=== PATIENT | male | born 1965 | race Two or more races ===

== ENCOUNTER 2017-03-26 07:10 | Day surgery (SDC) | payer OTHER ==
[~2017-03-26] VITALS: Ht 172.7 cm; Wt 68.9 kg
[2017-03-26] VITALS (11 sets, daily range): BP systolic 116–128; BP diastolic 71–89
[2017-03-26] MEDS ORDERED: LR 1000ml ONE (07:11)
[2017-03-26] MEDS ORDERED: Glycopyrrolate 0.2mg/ml 1ml Vial ONE (07:11)
[2017-03-26] MEDS ORDERED: Ketorolac 30mg Inj ONE (07:11)
[2017-03-26] MEDS ORDERED: Neostigmine 1mg/ml 10ml Inj ONE (07:11)
[2017-03-26] MEDS ORDERED: fentaNYL 100 mcg/2 mL IV ONE (07:11)
[2017-03-26] MEDS ORDERED: Zemuron 50mg/5ml Inj IV ONE (07:11)
[2017-03-26] MEDS ORDERED: NS Irrig 1000ml ONE (07:11)
[2017-03-26] MEDS ORDERED: Midazolam 2mg/2ml Inj ONE (07:11)
[2017-03-26] MEDS ORDERED: Propofol 200mg/20ml IV ONE ×2 (07:11→10:18)
[2017-03-26] MEDS ORDERED: Sterile Water Irrig 1000ml IRRIG ONE (07:11)
[2017-03-26] MEDS ORDERED: ceFAZolin 1 GM premix IV ONE (08:00)
[2017-03-26] MEDS ORDERED: celeBREX 200mg Cap **SURGERY PATIENTS ONLY ORAL ONE (08:00)
[2017-03-26] MEDS ORDERED: oxyCONTIN 20mg tab ORAL ONE (08:00)
[2017-03-26] MEDS ORDERED: EPINEPHrine 1mg/1ml Amp ONE (08:45)
[2017-03-26] MEDS ORDERED: Ropivacaine 5mg/ml Vial 30ml INJ ONE (08:46)
[2017-03-26] MEDS ORDERED: Lidocaine 1% 10mg/ml/Epi 0.005mg/ml 30ml vial INJ ONE (08:46)
[2017-03-26] MEDS ORDERED: Bupivacaine 0.25% Inj 30ml INJ ONE (09:06)
[2017-03-26] MEDS ORDERED: HYDROmorphone 1mg/ml Carpuject SUBQ PRN (09:15)
[2017-03-26] MEDS ORDERED: Norco 5mg/325mg tab ORAL PRN (09:15)
[2017-03-26] MEDS ORDERED: D5 1/2NS 1,000 ML IV SCH (09:15)
[2017-03-26] MEDS ORDERED: Tylenol #3 tab (300mg/30mg) ORAL PRN (09:15)
--- NOTE | 2017-03-26 09:15 | Pre-Procedure Note/Attestation ---
Pre-Procedure Note/Attestation Complete Prior to Procedure Planned Procedure: right Procedure Narrative: shoulder diagnostic arthroscopy, sad Indications for Procedure Pre-Operative Diagnosis: right shoulder impingement Attestation I attest that I discussed the nature of the procedure; its benefits; risks and complications; and alternatives (and the risks and benefits of such alternatives ), prior to the procedure, with the patient (or the patient's legal chemical sales representative). I attest that, if there was a reasonable possibility of needing a blood transfusion, the patient (or the patient's legal chemical sales representative) was given the [facility] of Health Services standardized written summary, pursuant to the [place] Blood Safety Act ([place] Health and Safety Code # 1645, as amended). I attest that I re-evaluated the patient just prior to the surgery and that there has been no change in the patient's H&P, except as documented below: LYNDON FERNANDEZ Mar 26, 2017 09:15
--- NOTE | 2017-03-26 09:16 | Operative Note - PDOC ---
Operative Note Operative Note Pre-op Diagnosis: right shoulder impingement Procedure: right shoulder arthroscopy, sad, labral repair Post-op Diagnosis: same as pre-op plus Operative Findings: consistent w/pre-op dx studies Anesthesia: regional Specimen: none Complications: none Condition: stable Estimated Blood Loss: none Implant(s) used?: Yes LYNDON FERNANDEZ Mar 26, 2017 09:16
[2017-03-26] MEDS ORDERED: OMEPRAZOLE40 M1 ORAL (09:21)
[2017-03-26] MEDS ORDERED: NS Irrig 4000ml IRRIG ONE (09:28)
[2017-03-26] MEDS ORDERED: LR 1000ml 1,000 ML IVLG SCH (11:49)
--- NOTE | 2017-03-26 11:49 | Anethesia Preoperative Eval ---
Anesthesia Pre-op PMH/ROS General Date of Evaluation: Mar 26, 2017 Time of Evaluation: 09:50 Anesthesiologist: Umberto ASA Score: ASA 2 Mallampati Score Class I : Soft palate, uvula, fauces, pillars visible Class II: Soft palate, uvula, fauces visible Class III: Soft palate, base of uvula visible Class IV: Only hard plate visible Mallampati Classification: Class II Surgeon: Asad Diagnosis: R shoulder pain Surgical Procedure: R shoulder scope Anesthesia History: none Family History: no anesthesia problems Allergies: Coded Allergies: No Known Allergies (Unverified , 03/25/17) Medications: see eMAR Past Medical History Cardiovascular: Reports: valve dz - s/p mityral valve replacement, Denies: HTN, CAD, [place], arrhythmia, other Pulmonary: Denies: asthma, COPD, DEMETRIO, other Gastrointestinal/Genitourinary: Reports: GERD, Denies: CRI, ESRD, other Neurologic/Psychiatric: Denies: dementia, CVA, depression/anxiety, TIA, other Endocrine: Denies: DM, hypothyroidism, steroids, other HEENT: Denies: cataract (L), cataract (R), glaucoma, [place] (L), [place] (R), other Hematology/Immune: Denies: anemia, DVT, bleeding disorder, other Musculoskeletal/Integumentary: Denies: OA, RA, DJD, DDD, edema, other PMH Narrative: as above PSxH Narrative: Valve replacement Anesthesia Pre-op Phys. Exam Physician Exam Last Vital Signs Date Time Temp Pulse Resp B/P (MAP) Pulse Ox O2 Delivery O2 Flow Rate FiO2 03/26/17 08:33 97.8 72 18 116/84 97 Room Air Constitutional: NAD Neurologic: CN 2-12 intact Cardiovascular: RRR, no M/R/G Respiratory: CTA Gastrointestinal: S/NT/ND Airway Exam Mallampati Score: Class II Neck: flexible ROM: full Teeth: intact Dentures: no upper, no lower Anesthesia Pre-op A/P Labs see chart Studies Pre-op Studies: EKG - NSR Risk Assessment & Plan Assessment: ASA 2 Plan: GA with ETT R brachial plexus block Status Change Before Surgery: No Pre-Antibiotics Drug: Ancef 1 gr. Given Within 1 Hr of Incision: Yes Time Given: 11:22 PENNIE MARSHALL M.D. Mar 26, 2017 11:49
[2017-03-26] MEDS ORDERED: Hydromorphone 0.5mg/0.5ml inj IVP PRN (12:00)
[2017-03-26] MEDS ORDERED: DiphenhydrAMINE 50mg/ml Inj IVP PRN (12:00)
[2017-03-26] MEDS ORDERED: Meperidine 50mg/ml Inj(FOR RIGORS ONLY) IV PRN (12:00)
[2017-03-26] MEDS ORDERED: Ketorolac 30mg Inj IV PRN (12:00)
--- NOTE | 2017-03-26 14:17 | Immediate Post-Op Evaluation ---
Immediate Post-Op Evalulation Immediate Post-Op Evalulation Procedure: R shoulder scope subacromion decompression labrum repair Date of Evaluation: Mar 26, 2017 Time of Evaluation: 12:44 IV Fluids: 1200 Blood Products: none Estimated Blood Loss: min Urinary Output: none Blood Pressure Systolic: 111 Blood Pressure Diastolic: 72 Pulse Rate: 74 Respiratory Rate: 20 O2 Sat by Pulse Oximetry: 99 Temperature (Fahrenheit): 97.6 Pain Score (1-10): 2 Nausea: No Vomiting: No Complications none Patient Status: reacts, patent, extubated, none Hydration Status: adequate PENNIE MARSHALL M.D. Mar 26, 2017 14:17
--- NOTE | 2017-03-26 14:18 | 48 Hour Post Anesthesia Eval ---
Post Anesthesia Evaluation Procedure: R shoulder scope subacromion decompression labrum repair Date of Evaluation: Mar 26, 2017 Time of Evaluation: 14:17 Blood Pressure Systolic: 128 0: 76 Pulse Rate: 68 Respiratory Rate: 18 Temperature (Fahrenheit): 97.6 O2 Sat by Pulse Oximetry: 98 Airway: patent Nausea: No Vomiting: No Pain Intensity: 1 Hydration Status: adequate Cardiopulmonary Status: stable Mental Status/LOC: patient returned to baseline Follow-up Care/Observations: n/a Post-Anesthesia Complications: none Follow-up care needed: ready to discharge PENNIE MARSHALL M.D. Mar 26, 2017 14:18
--- NOTE | 2017-03-26 19:31 | Operative Note - Dictated ---
DATE OF OPERATION: 03/26/2017 PREOPERATIVE DIAGNOSES: 1. Right shoulder internal derangement syndrome, possible rotator cuff tendinosis. 2. Right shoulder traumatic impingement syndrome. POSTOPERATIVE DIAGNOSES: 1. Right shoulder anterior and inferior labral tear. 2. Right shoulder traumatic impingement syndrome/bursitis. PROCEDURES: 1. Right shoulder diagnostic arthroscopy. 2. Extensive debridement to the right shoulder anterior labral repair. 3. Subacromial decompression and bursectomy. SURGEON: Wilbert Kamara M.D. ANESTHESIA: Interscalene with general. INDICATION FOR PROCEDURE: The patient is a pleasant gentleman who has had progressive right shoulder pain. He had MRI, which showed possible tear of rotator cuff and was felt he had some degree of impingement syndrome. He elected to undergo right shoulder arthroscopy with subacromial decompression and bursectomy. Risks, limitations, expectations, and complications of the procedure were discussed in detail continued pain, need for future surgery, risk of anesthesia, complications DVT, PE, and mortality risks. All questions addressed. DESCRIPTION OF PROCEDURE: After informed consent was obtained, the patient was brought into the operating room and placed supine under monitored anesthesia control. The patient was then carefully placed in beach chair position. Right shoulder was prepped and draped in a sterile manner. Time-out was performed. Inferolateral stab incision was then made. Trocar was introduced into the right humeral joint. There was no significant chondral damage in the medial or superior glenoid. Humeral head appeared to be intact. There was a tear along the anterior and inferior labrum with elements of chondral damage. The superior labrum appeared to be intact along with biceps tendon. The articular side rotator cuff was intact. At this point, I felt that his pain may be coming from some instability in his shoulder and therefore the anterior labrum was reapproximated to the anterior surface of the glenoid using anchor. Once this was nice and secured, camera was repositioned in the subacromial space. There is significant hypertrophic bursal tissue. The undersurface of the acromion identified using the ArthroCare. Acromioplasty was started from lateral to medial, completed from posterior to anterior. Once that was done, the bursectomy was completed in the posterior aspect of the acromion. At this point, the bursal side of the rotator cuff was evaluated and noted to be intact. At this point, the instruments removed. Portal sites were closed using 3-0 Monocryl suture. Steri-Strips and a sterile dressing were applied. The patient awoken and taken to the recovery with stable signs. ESTIMATED BLOOD LOSS: None. COMPLICATION: None. SPECIMENS: None. IMPLANT: Include one [employer] JuggerKnot anchor. Wilbert Kamara M.D. DR: Aurelio JOB#: [id number] CC: KALIA
== END 2017-03-26 14:10 | disposition home or self-care (01) ==
LOC: SDS 07:10
DX: M75.41 Impingement syndrome of right shoulder (principal); S43.401A Unspecified sprain of right shoulder joint, initial encounter; X58.XXXA Exposure to other specified factors, initial encounter; Y93.9 Activity, unspecified; Y92.9 Unspecified place or not applicable; Z95.2 Presence of prosthetic heart valve
CPT/HCPCS: 29823; 29826; J0171; J1885; J2250; J2704; J2710; J2795; J3010; J3490; J7120; 94003; 94150; C1713

== ENCOUNTER 2017-07-09 07:04 | Day surgery (SDC) | payer OTHER ==
[2017-07-09] VITALS (13 sets, daily range): BP systolic 110–124; BP diastolic 71–85
[~2017-07-09] VITALS: Ht 172.7 cm; Wt 70.3 kg
[~2017-07-09 07:04] MED LIST: Atropine Inj 1mg/10ml Syr IV PRN; Dexamethasone 4mg/ml vial ONE; DiphenhydrAMINE 50mg/ml Inj IVP PRN; EPINEPHrine 1mg/1ml Amp ONE; HYDROcodone/Acetamin 7.5/325 tab ORAL PRN; Hydromorphone 0.5mg/0.5ml inj IVP PRN; Ketorolac 30mg Inj IV PRN; LORazepam Inj 2mg/ml 1ml IV PRN; LR 1000ml 1,000 ML IVLG SCH; Labetalol 5mg/ml 20ml vial IV PRN; Midazolam 2mg/2ml Inj IVP PRN; Norco 5mg/325mg tab ORAL PRN; OMEPRAZOLE40 M1 ORAL; Propofol 200mg/20ml IV ONE; Ropivacaine 5mg/ml Vial 30ml INJ ONE; fentaNYL 100 mcg/2 mL IV ONE; fentaNYL 100 mcg/2 mL IV PRN; oxyCODONE HCL/Acetaminophen 5/325mg ORAL PRN
[2017-07-09] MEDS ORDERED: Kenalog-40 1ml Vial ONE ×2 (07:30→08:46)
[2017-07-09] MEDS ORDERED: Ropivacaine 2mg/ml Amp 20ml INJ ONE (07:30)
[2017-07-09] MEDS ORDERED: Lidocaine 1% 10mg/ml/Epi 0.005mg/ml 30ml vial INJ ONE (07:31)
[2017-07-09] MEDS ORDERED: NORCO 10-325 T1 EACH ORAL (07:33)
--- NOTE | 2017-07-09 07:44 | Pre-Procedure Note/Attestation ---
Pre-Procedure Note/Attestation Complete Prior to Procedure Planned Procedure: right Procedure Narrative: shoulder manipulation under anesthesia and intraarticular cortisone injection Indications for Procedure Pre-Operative Diagnosis: right shoulder adhesive capsilitis Attestation I attest that I discussed the nature of the procedure; its benefits; risks and complications; and alternatives (and the risks and benefits of such alternatives ), prior to the procedure, with the patient (or the patient's legal personal service representative). I attest that, if there was a reasonable possibility of needing a blood transfusion, the patient (or the patient's legal personal service representative) was given the [facility] of Health Services standardized written summary, pursuant to the Sharif [place] Blood Safety Act ([place] Health and Safety Code # 1645, as amended). I attest that I re-evaluated the patient just prior to the surgery and that there has been no change in the patient's H&P, except as documented below: LYNDON FERNANDEZ Jul 09, 2017 07:44
--- NOTE | 2017-07-09 07:45 | Operative Note - PDOC ---
Operative Note Operative Note Pre-op Diagnosis: right shoulder adhesive capsilitis Procedure: see op report Post-op Diagnosis: same as pre-op plus Operative Findings: consistent w/pre-op dx studies Anesthesia: MAC Specimen: none Complications: none Condition: stable Estimated Blood Loss: none Implant(s) used?: LYNDON Raza Jul 09, 2017 07:45
--- NOTE | 2017-07-09 08:17 | Anethesia Preoperative Eval ---
Anesthesia Pre-op PMH/ROS General Date of Evaluation: Jul 09, 2017 Time of Evaluation: 08:13 Anesthesiologist: Umberto ASA Score: ASA 2 Mallampati Score Class I : Soft palate, uvula, fauces, pillars visible Class II: Soft palate, uvula, fauces visible Class III: Soft palate, base of uvula visible Class IV: Only hard plate visible Mallampati Classification: Class II Surgeon: Asad Diagnosis: R shoulder pain Surgical Procedure: R shoulder manipulation Anesthesia History: none Family History: no anesthesia problems Allergies: Coded Allergies: No Known Allergies (Unverified , 03/25/17) Medications: see eMAR Past Medical History Cardiovascular: Reports: HTN - mild; Denies: CAD, [place], valve dz, arrhythmia, other Pulmonary: Denies: asthma, COPD, DEMETRIO, other Gastrointestinal/Genitourinary: Reports: GERD; Denies: CRI, ESRD, other Neurologic/Psychiatric: Reports: other - chronic pain; Denies: dementia, CVA, depression/anxiety, TIA Endocrine: Denies: DM, hypothyroidism, steroids, other HEENT: Denies: cataract (L), cataract (R), glaucoma, [place] (L), [place] (R), other Hematology/Immune: Denies: anemia, DVT, bleeding disorder, other Musculoskeletal/Integumentary: Denies: OA, RA, DJD, DDD, edema, other PMH Narrative: as above PSxH Narrative: See H&P Anesthesia Pre-op Phys. Exam Physician Exam Last Vital Signs Date Time Temp Pulse Resp B/P (MAP) Pulse Ox O2 Delivery O2 Flow Rate FiO2 07/09/17 07:55 97.7 65 20 115/81 96 Room Air 97.7 Constitutional: NAD Neurologic: CN 2-12 intact Cardiovascular: RRR Respiratory: CTA Gastrointestinal: S/NT/ND Airway Exam Mallampati Score: Class II MO: full Neck: flexible ROM: full Teeth: intact Dentures: no upper, no lower Anesthesia Pre-op A/P Labs see chart Risk Assessment & Plan Assessment: ASA 2 Plan: MAC with brachial plexus block Status Change Before Surgery: No Pre-Antibiotics Drug: Ancef !gr. Given Within 1 Hr of Incision: Yes Time Given: 09:10 PENNIE MARSHALL M.D. Jul 09, 2017 08:17
[2017-07-09] MEDS ORDERED: Morphine Sulfate PF 10 ML ONE (08:46)
[2017-07-09] MEDS ORDERED: Ketorolac 30mg Inj ONE (08:46)
[2017-07-09] MEDS ORDERED: Bupivacaine 0.25% Inj 30ml INJ ONE (08:47)
[2017-07-09] MEDS ORDERED: Midazolam 2mg/2ml Inj ONE (09:00)
[2017-07-09] MEDS ORDERED: LR 1000ml ONE (09:00)
[2017-07-09] MEDS ORDERED: fentaNYL 100 mcg/2 mL IV ONE (09:00)
[2017-07-09] MEDS ORDERED: Duramorph PF 10mg/10ml amp EPIDUR ONE (09:10)
--- NOTE | 2017-07-09 11:20 | Immediate Post-Op Evaluation ---
Immediate Post-Op Evalulation Immediate Post-Op Evalulation Procedure: R shoulder manipulation with injection Date of Evaluation: Jul 09, 2017 Time of Evaluation: 09:40 IV Fluids: 600 Blood Products: none Estimated Blood Loss: min Urinary Output: none Blood Pressure Systolic: 132 Blood Pressure Diastolic: 56 Pulse Rate: 72 Respiratory Rate: 20 O2 Sat by Pulse Oximetry: 99 Temperature (Fahrenheit): 97.4 Pain Score (1-10): 2 Nausea: No Vomiting: No Complications none Patient Status: reacts, patent, none Hydration Status: adequate PENNIE MARSHALL M.D. Jul 09, 2017 11:20
--- NOTE | 2017-07-09 11:21 | 48 Hour Post Anesthesia Eval ---
Post Anesthesia Evaluation Procedure: R shoulder manipulation with injection Date of Evaluation: Jul 09, 2017 Time of Evaluation: 11:20 Blood Pressure Systolic: 124 0: 68 Pulse Rate: 82 Respiratory Rate: 20 Temperature (Fahrenheit): 97.6 O2 Sat by Pulse Oximetry: 98 Airway: patent Nausea: No Vomiting: No Pain Intensity: 3 Hydration Status: adequate Cardiopulmonary Status: stable Mental Status/LOC: patient returned to baseline Follow-up Care/Observations: n/a Post-Anesthesia Complications: none Follow-up care needed: ready to discharge PENNIE MARSHALL M.D. Jul 09, 2017 11:21
--- NOTE | 2017-07-09 11:45 | Operative Note - Dictated ---
DATE OF OPERATION: 07/09/2017 PREOPERATIVE DIAGNOSIS: 1.Status post right shoulder anterior labral stabilization 2. Adhesive capsulitis. POSTOPERATIVE DIAGNOSIS: same PROCEDURES: 1. Manipulation under anesthesia, right shoulder. 2. Intra-articular shoulder injection. SURGEON: Wilbert Kamara M.D. ANESTHESIA: Interscalene with sedation. INDICATION FOR PROCEDURE: The patient is a pleasant 52-year-old gentleman, who underwent right anterior labral stabilization procedure approximately 5 months ago. He had delay in physical therapy, developed postoperative adhesive capsulitis. It was very difficult for him to improve his range of motion with physical therapy. Therefore, we elected to undergo gentle manipulation under anesthesia and intraarticular injection. Risks, limitations, expectations and complications of the procedure were discussed in detail. All questions addressed. DESCRIPTION OF PROCEDURE: After informed consent was obtained, the patient was brought into the operating room and placed under heavy sedation. Shoulder was flexed to 150 degrees, shoulder abducted to 70 degrees internal rotation 0. Gentle manipulation with abduction, external rotation, forward flexion and abduction, internal rotation was performed. At the conclusion of the procedure, forward elevation was 170, abduction was 90, external rotation was 90, and internal rotation was 90. The patient was then awoken and taken to recovery room with stable vital signs. Once the manipulation was completed, the intra-articular injection containing 0.25% Marcaine with epinephrine, 40 mg of Kenalog, 5 mL Duramorph and 30 mg of Toradol was injected. EBL: None. COMPLICATION: None. SPECIMENS: None. Wilbert Kamara M.D. DR: DEXTER JOB#: [id number] CC: KALIA
[2017-07-09] MEDS ORDERED: Norco 5mg/325mg tab ORAL PRN (12:31)
[2017-07-09] MEDS ORDERED: Tylenol #3 tab (300mg/30mg) ORAL PRN (12:31)
[2017-07-09] MEDS ORDERED: D5 1/2NS 1,000 ML IV SCH (12:31)
== END 2017-07-09 12:35 | disposition home or self-care (01) ==
LOC: SUR 07:04
DX: M75.01 Adhesive capsulitis of right shoulder (principal); I10 Essential (primary) hypertension; K21.9 Gastro-esophageal reflux disease without esophagitis
CPT/HCPCS: 23700; J1100; J1885; J2274; J2795; J3301; J3490; 94003; 94150; J2250

== ENCOUNTER 2017-11-30 06:32 | Inpatient (IN) | payer OTHER ==
[2017-11-22 14:56] LABS: BASOPHILS % (AUTO) 0.9 % (0.0-2.0); EOSINOPHILS % (AUTO) 0.6 % (0.0-3.0); HEMATOCRIT 47.9 % (42.0-52.0); HEMOGLOBIN 16.5 G/DL (14.2-18.0); LYMPHOCYTES % (AUTO) 26.7 % (20.0-45.0); MEAN CORPUSCULAR VOLUME 90 FL (80-99); MONOCYTES % (AUTO) 6.9 % (1.0-10.0); NEUTROPHILS % (AUTO) 64.9 % (45.0-75.0); PLATELET COUNT 171 K/UL (150-450); RED BLOOD COUNT 5.33 M/UL (4.70-6.10); RED CELL DISTRIBUTION WIDTH 11.2 % (11.6-14.8); WHITE BLOOD COUNT 5.9 K/UL (4.8-10.8)
[2017-11-22 15:07] LABS: INR 1.1 (0.9-1.1)
[2017-11-22 15:22] LABS: ALANINE AMINOTRANSFERASE 35 U/L (12-78); ALBUMIN 3.9 G/DL (3.4-5.0); ALBUMIN/GLOBULIN RATIO 1.1 (1.0-2.7); ALKALINE PHOSPHATASE 60 U/L (46-116); ANION GAP 9 mmol/L (5-15); ASPARTATE AMINO TRANSFERASE 25 U/L (15-37); BILIRUBIN,TOTAL 0.5 MG/DL (0.2-1.0); BLOOD UREA NITROGEN 12 mg/dL (7-18); CALCIUM 9.3 MG/DL (8.5-10.1); CARBON DIOXIDE 26 MMOL/L (21-32); CHLORIDE 105 MMOL/L (98-107); CREATININE 0.9 MG/DL (0.55-1.30); PHOSPHORUS 3.5 MG/DL (2.5-4.9); SODIUM 140 MMOL/L (136-145)
--- NOTE | 2017-11-22 15:35 | Diagnostic Imaging Report ---
Indication: Cough Technique: 2 views of the chest Comparison: None Findings: Lungs and pleural spaces are clear. The heart size is normal. The bones are unremarkable. There are median sternotomy sutures Impression: Negative
[2017-11-30] VITALS (14 sets, daily range): BP systolic 120–147; BP diastolic 71–95
[~2017-11-30] VITALS: Ht 172.7 cm; Wt 68.5 kg
[~2017-11-30 06:32] MED LIST changes: -Atropine Inj 1mg/10ml Syr IV PRN; -Dexamethasone 4mg/ml vial ONE; -DiphenhydrAMINE 50mg/ml Inj IVP PRN; -EPINEPHrine 1mg/1ml Amp ONE; -HYDROcodone/Acetamin 7.5/325 tab ORAL PRN; -Hydromorphone 0.5mg/0.5ml inj IVP PRN; -Ketorolac 30mg Inj IV PRN; -LORazepam Inj 2mg/ml 1ml IV PRN; -LR 1000ml 1,000 ML IVLG SCH; -Labetalol 5mg/ml 20ml vial IV PRN; -Midazolam 2mg/2ml Inj IVP PRN; +NORCO 10-325 T1 EACH ORAL; -Norco 5mg/325mg tab ORAL PRN; -Propofol 200mg/20ml IV ONE; -Ropivacaine 5mg/ml Vial 30ml INJ ONE; -fentaNYL 100 mcg/2 mL IV ONE; -fentaNYL 100 mcg/2 mL IV PRN; -oxyCODONE HCL/Acetaminophen 5/325mg ORAL PRN
[2017-11-30] MEDS ORDERED: EPINEPHrine 1mg/1ml Amp ONE (07:15)
[2017-11-30] MEDS ORDERED: Thrombin 5000 units spray kit TOPIC ONE (07:15)
[2017-11-30] MEDS ORDERED: Vancomycin 1gm inj IVPB ONE (07:15)
[2017-11-30] MEDS ORDERED: Bupivacaine 0.5% Inj 30 ml vial INJ ONE (07:16)
[2017-11-30] MEDS ORDERED: Bacitracin 50000 Units Vial ONE (07:16)
[2017-11-30] MEDS ORDERED: Gelfoam Absorbable 1gm powder pkt TOPIC ONE (07:16)
[2017-11-30] MEDS ORDERED: Gelfoam Size TOPIC ONE (07:16)
[2017-11-30] MEDS ORDERED: Thrombin 5000 units TOPIC ONE (07:16)
[2017-11-30] MEDS ORDERED: DEXILANT60 MG ORAL (07:20)
[2017-11-30] MEDS ORDERED: fentaNYL 100 mcg/2 mL IV ONE (07:43)
[2017-11-30] MEDS ORDERED: Propofol 200mg/20ml IV ONE ×2 (07:44→09:58)
[2017-11-30] MEDS ORDERED: Midazolam 2mg/2ml Inj ONE (07:44)
[2017-11-30] MEDS ORDERED: Lidocaine 1% MPF 10mg/ml 5ml ONE (07:44)
[2017-11-30] MEDS ORDERED: Sodium Chloride 10ml vial INJ ONE (07:44)
[2017-11-30] MEDS ORDERED: Sterile Water Irrig 1000ml IRRIG ONE (08:00)
[2017-11-30] MEDS ORDERED: LR 1000ml ONE (08:00)
[2017-11-30] MEDS ORDERED: Zemuron 50mg/5ml Inj IV ONE (08:06)
--- NOTE | 2017-11-30 08:09 | Pre-Procedure Note/Attestation ---
Pre-Procedure Note/Attestation Complete Prior to Procedure Procedure Narrative: C45 acdf vs acdr, c567 acdf Indications for Procedure Pre-Operative Diagnosis: multilevel discopathy and radiculopathy c4-7 Attestation I attest that I discussed the nature of the procedure; its benefits; risks and complications; and alternatives (and the risks and benefits of such alternatives ), prior to the procedure, with the patient (or the patient's legal event marketing representative). I attest that, if there was a reasonable possibility of needing a blood transfusion, the patient (or the patient's legal event marketing representative) was given the [facility] of Health Services standardized written summary, pursuant to the Sharif [place]i Blood Safety Act ([place] Health and Safety Code # 1645, as amended). I attest that I re-evaluated the patient just prior to the surgery and that there has been no change in the patient's H&P, except as documented below: Pepe Barrios MD Nov 30, 2017 08:09
[2017-11-30] MEDS ORDERED: NS Irrig 1000ml IRRIG ONE (08:22)
[2017-11-30] MEDS ORDERED: ePHEDrine 50mg/ml Inj ONE (08:52)
[2017-11-30] MEDS ORDERED: LR 1000ml 1,000 ML IVLG SCH (09:11)
[2017-11-30] MEDS ORDERED: DiphenhydrAMINE 50mg/ml Inj IVP PRN (09:15)
[2017-11-30] MEDS ORDERED: Hydromorphone 0.5mg/0.5ml inj IVP PRN (09:15)
[2017-11-30] MEDS ORDERED: Meperidine 50mg/ml Inj(FOR RIGORS ONLY) IVP PRN (09:15)
[2017-11-30] MEDS ORDERED: LORazepam Inj 2mg/ml 1ml IV PRN (09:15)
--- NOTE | 2017-11-30 09:30 | Anethesia Preoperative Eval ---
Anesthesia Pre-op PMH/ROS General Date of Evaluation: Nov 30, 2017 Time of Evaluation: 08:10 Anesthesiologist: Alicia ASA Score: ASA 2 Mallampati Score Class I : Soft palate, uvula, fauces, pillars visible Class II: Soft palate, uvula, fauces visible Class III: Soft palate, base of uvula visible Class IV: Only hard plate visible Mallampati Classification: Class II Surgeon: Sophie Diagnosis: Cervical discopathy Surgical Procedure: Disc relacement vs ACDF C4-5, ADF C5-6, C6-7 Family History: no anesthesia problems Allergies: Coded Allergies: No Known Allergies (Unverified , 03/25/17) Medications: see eMAR Past Medical History Cardiovascular: Reports: other - 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; Denies: HTN, CAD, [place], valve dz, arrhythmia Pulmonary: Denies: asthma, COPD, DEMETRIO, other Gastrointestinal/Genitourinary: Denies: GERD, CRI, ESRD, other Neurologic/Psychiatric: Denies: dementia, CVA, depression/anxiety, TIA, other Endocrine: Denies: DM, hypothyroidism, steroids, other HEENT: Denies: cataract (L), cataract (R), glaucoma, [place] (L), [place] (R), other Hematology/Immune: Denies: anemia, DVT, bleeding disorder, other Musculoskeletal/Integumentary: Denies: OA, RA, DJD, DDD, edema, other PMH Narrative: Congenital mitral valve defect surgically corrected 35 years ago PSxH Narrative: Mitral valve, shoulder X2 Anesthesia Pre-op Phys. Exam Physician Exam Last Vital Signs Date Time Temp Pulse Resp B/P (MAP) Pulse Ox O2 Delivery O2 Flow Rate FiO2 11/30/17 07:50 96.9 62 20 120/81 (94) 96 96.9 11/30/17 07:20 Room Air Constitutional: NAD Neurologic: CN 2-12 intact Cardiovascular: RRR, no M/R/G Respiratory: CTA Gastrointestinal: S/NT/ND Airway Exam Mallampati Score: Class II MO: full ROM: full Teeth: intact Anesthesia Pre-op A/P Labs WNL Studies Pre-op Studies: EKG - NSR Risk Assessment & Plan Assessment: Healthy male now for cervical ACDF Plan: GETA, SedLine Status Change Before Surgery: No Pre-Antibiotics Drug: Ancef Given Within 1 Hr of Incision: Yes Time Given: 08:45 Sharif Vargas MD Nov 30, 2017 09:30
--- NOTE | 2017-11-30 09:32 | Immediate Post-Op Evaluation ---
Immediate Post-Op Evalulation Immediate Post-Op Evalulation Procedure: Cervical disc replacement vs CDF C4-5, ACDF C5-6 and C6-7 Date of Evaluation: Nov 30, 2017 Time of Evaluation: 13:05 IV Fluids: 1400 Estimated Blood Loss: 100 Urinary Output: 200 Blood Pressure Systolic: 127 Blood Pressure Diastolic: 71 Pulse Rate: 85 Respiratory Rate: 16 O2 Sat by Pulse Oximetry: 99 Temperature (Fahrenheit): 97.6 Pain Score (1-10): 2 Nausea: No Vomiting: No Complications No complication Patient Status: reacts, patent, extubated, none Hydration Status: adequate Drug: Ancef Given Within 1 Hr of Incision: Yes Time Given: 08:45 Sharif Vargas MD Nov 30, 2017 09:32
[2017-11-30] MEDS ORDERED: Milk of Magnesia 30ml Ud ORAL PRN (12:45)
--- NOTE | 2017-11-30 12:50 | Brief Operative Note ---
Immediate Post Operative Note Operative Note Pre-op Diagnosis: multilevel discopathy and radiculopathy c4-7 Procedure: c45 acdr, c5-7 acdf with uncovertebrectomy Post-op Diagnosis: same as pre-op Findings: consistent w/pre-op dx studies Surgeon: myles Hotel Service Manager: zohaib Anesthesiologist: radha Anesthesia: general Specimen: none Complications: none Condition: stable Fluids: 1400 Estimated Blood Loss: volume - 100 Drains: none Implant(s) used?: Yes - 4web cage, mobi c disc, rti plate Pepe Barrios MD Nov 30, 2017 12:50
--- NOTE | 2017-11-30 15:26 | Diagnostic Imaging Report ---
INDICATION: Pain, intraoperative TECHNIQUE: Intraoperative imaging Fluoroscopy time: 33.6 seconds Total dose: 0.65100 mGym2 Total number of images: 4 COMPARISON: None FINDINGS: Intraoperative images demonstrate a surgical tool at the level of the anterior C6-7 disc. Subsequent images document anterior fusion at C5-6 and C6-7, placement of a disc prosthesis at C4-5. IMPRESSION: Intraoperative imaging, as described
[2017-11-30] MEDS ORDERED: HYDROmorphone 1mg/ml Carpuject SUBQ SCH ×2 (15:45→16:00)
[2017-11-30] MEDS: ceFAZolin sod 1 GM in D5W 55 ML IV SCH (16:12)
[2017-11-30] MEDS: LR 1000ml 1,000 ML IV SCH (16:12)
[2017-11-30] MEDS ORDERED: LORazepam 0.5mg tab ORAL ONE (16:48)
[2017-11-30] MEDS ORDERED: Chloraseptic Spray 20mL Bottle ORAL ONE (16:48)
[2017-11-30] MEDS ORDERED: Chloraseptic Spray 20mL Bottle ORAL PRN (17:00)
[2017-11-30] MEDS ORDERED: LORazepam 0.5mg tab ORAL PRN (17:00)
[2017-11-30] MEDS ORDERED: TransDerm Scop 1mg/72HR Patch TDERMAL PRN (17:00)
[2017-11-30] MEDS: Docusate Sod/Senna tab ORAL SCH (17:17)
--- NOTE | 2017-11-30 18:55 | Internal Med Progress Note ---
Subjective Date of Service: Nov 30, 2017 Physician Name Joe Buenrostro Attending Physician Pepe Barrios MD Current Medications Medications (Trade) Dose Ordered Sig/Annie Route PRN Reason Start Time Stop Time Status Last Admin Dose Admin Acetaminophen (Tylenol) 650 mg Q4H PRN ORAL headache or temp>101 11/30/17 12:45 12/30/17 12:44 Acetaminophen/ Hydrocodone Bitart ([place] 10/325) 1 tab Q3H PRN ORAL Pain Scale (3-5) 11/30/17 16:45 12/07/17 16:44 Al Hydroxide/Mg Hydroxide (Mylanta) 30 ml Q6H PRN ORAL gerd 11/30/17 22:45 12/30/17 22:44 Cefazolin Sodium 1 gm/Dextrose 55 ml @ 110 mls/hr Q8H IV 11/30/17 17:00 12/01/17 09:29 11/30/17 16:12 Diphenhydramine HCl (Benadryl) 25 mg Q6H PRN ORAL Itching 11/30/17 16:45 12/30/17 16:44 Hydromorphone HCl (Dilaudid) 1 mg Q3H PRN SUBQ severe pain 11/30/17 19:00 12/07/17 18:59 Lactated Ringer's 1,000 ml @ 100 mls/hr Q10H IV 11/30/17 13:45 12/30/17 13:44 11/30/17 16:12 Lorazepam (Ativan) 0.5 mg Q6H PRN ORAL anxiety / insomnia 11/30/17 17:00 12/07/17 16:59 Magnesium Hydroxide (Mom) 30 ml QIDPRN PRN ORAL Constipation 11/30/17 12:45 12/30/17 12:44 Ondansetron HCl (Zofran) 4 mg Q4H PRN IVP Nausea & Vomiting 11/30/17 16:45 12/30/17 16:44 11/30/17 16:47 Pantoprazole (Protonix) 40 mg DAILY ORAL 12/01/17 09:00 12/31/17 08:59 Phenol/Menthol (Chloraseptic) 1 spray Q3H PRN ORAL sore throat 11/30/17 17:00 12/30/17 16:59 9/18/18 17:18 Promethazine HCl (Phenergan) 12.5 mg Q8H PRN IM Nausea & Vomiting 11/30/17 17:00 12/30/17 16:59 Scopolamine (TransDerm Scop 1mg/72HR Patch) 1 mg Q72H PRN TDERMAL refractory nausea 11/30/17 17:00 12/30/17 16:59 Senna/Docusate Sodium (Valentina-Colace) 1 tab TWICE A DAY ORAL 11/30/17 18:00 12/30/17 17:59 11/30/17 17:17 Allergies: Coded Allergies: No Known Allergies (Unverified , 03/25/17) ROS Limited/Unobtainable: No Constitutional: Reports: no symptoms HEENT: Reports: no symptoms Cardiovascular: Reports: no symptoms Respiratory: Reports: no symptoms Gastrointestinal/Abdominal: Reports: no symptoms Genitourinary: Reports: no symptoms Neurologic/Psychiatric: Reports: no symptoms Subjective 52 YO M admitted with cervical spine radiculopathy. Now S/P C4-5 ACDR and C5-7 ACDF with uncoverbrectomy on 11/30/17. Cover for Int [facility]-Dr Chris Objective Last Vital Signs Date Time Temp Pulse Resp B/P (MAP) Pulse Ox O2 Delivery O2 Flow Rate FiO2 11/30/17 16:30 Nasal Cannula 3.0 11/30/17 15:45 97.3 94 20 133/89 (104) 97 97.3 General Appearance: WD/WN, no apparent distress, alert EENT: PERRL/EOMI, normal ENT inspection Neck: non-tender, normal alignment, supple, normal inspection Cardiovascular: normal peripheral pulses, normal rate, regular rhythm, no gallop/murmur, no JVD Respiratory/Chest: chest wall non-tender, lungs clear, normal breath sounds, no respiratory distress, no accessory muscle use Abdomen: normal bowel sounds, non tender, soft, no organomegaly, no mass Extremities: normal range of motion, non-tender Neurologic: fertilizer supervisor II-XII grossly normal, no motor/sensory deficits Skin: normal pigmentation, warm/dry Assessment/Plan Problem List: (1) Cervical spinal stenosis Assessment & Plan: S/P C 4-5 ACDR and C 5-7 ACDF with uncoverbrectomy on . See surgery note. (2) Radiculopathy of cervical spine (3) Gastroesophageal reflux disease Status: progressing Joe Buenrostro MD Nov 30, 2017 18:55
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
[2017-11-30] MEDS: HYDROmorphone 1mg/ml Carpuject SUBQ PRN (22:46)
[2017-12-01] VITALS: BP 125/80
[2017-12-01] MEDS: ceFAZolin sod 1 GM in D5W 55 ML IV SCH ×2 (01:25→09:51)
[2017-12-01] MEDS: LR 1000ml 1,000 ML IV SCH ×2 (01:25→09:45)
[2017-12-01] MEDS: HYDROmorphone 1mg/ml Carpuject SUBQ PRN ×2 (03:17→09:44)
[2017-12-01 04:00] VITALS: BP 104/69
[2017-12-01] MEDS: HYDROcodone/Acetamin 10/325 tab ORAL PRN ×3 (06:11→15:31)
[2017-12-01 06:19] VITALS: BP 104/69
[2017-12-01 06:34] LABS: BASOPHILS % (AUTO) 0.2 % (0.0-2.0); HEMATOCRIT 42.2 % (42.0-52.0); HEMOGLOBIN 14.7 G/DL (14.2-18.0); LYMPHOCYTES % (AUTO) 8.2 % (20.0-45.0); MEAN CORPUSCULAR VOLUME 90 FL (80-99); MONOCYTES % (AUTO) 7.8 % (1.0-10.0); NEUTROPHILS % (AUTO) 83.8 % (45.0-75.0); PLATELET COUNT 178 K/UL (150-450); RED BLOOD COUNT 4.71 M/UL (4.70-6.10); WHITE BLOOD COUNT 10.8 K/UL (4.8-10.8)
[2017-12-01 06:49] LABS: ANION GAP 5 mmol/L (5-15); BLOOD UREA NITROGEN 11 mg/dL (7-18); CALCIUM 8.6 MG/DL (8.5-10.1); CARBON DIOXIDE 29 MMOL/L (21-32); CHLORIDE 104 MMOL/L (98-107); CREATININE 0.8 MG/DL (0.55-1.30); POTASSIUM 3.9 MMOL/L (3.5-5.1); SODIUM 138 MMOL/L (136-145)
[2017-12-01 08:00] VITALS: BP 118/72
[2017-12-01] MEDS: Docusate Sod/Senna tab ORAL SCH (09:41)
--- NOTE | 2017-12-01 09:43 | 48 Hour Post Anesthesia Eval ---
Post Anesthesia Evaluation Procedure: Cervical disc replacement vs CDF C4-5, ACDF C5-6 and C6-7 Date of Evaluation: Dec 01, 2017 Time of Evaluation: 09:41 Blood Pressure Systolic: 128 0: 75 Pulse Rate: 68 Respiratory Rate: 20 Temperature (Fahrenheit): 97.6 O2 Sat by Pulse Oximetry: 98 Airway: patent Nausea: No Vomiting: No Pain Intensity: 3 Hydration Status: adequate Cardiopulmonary Status: stable Mental Status/LOC: patient returned to baseline Follow-up Care/Observations: n/a Post-Anesthesia Complications: none Follow-up care needed: N/A Giuseppe Shipman MD Dec 01, 2017 09:42
[2017-12-01 12:00] VITALS: BP 131/82
[2017-12-01] MEDS ORDERED: NORCO 10-325 T1 EACH ORAL (15:20)
--- NOTE | 2017-12-01 17:00 | Progress Note ---
DATE: 12/01/2017 ACUTE PAIN MANAGEMENT PHYSICIAN PROGRESS NOTE MEDICATIONS: Medication administration record reviewed. Medication include Valentina-Colace, Phenergan, Chloraseptic spray, Protonix, Zofran, milk of magnesia, Ute, Benadryl, Mylanta, and Tylenol. LABORATORY STUDIES: From this morning, December 01, 2017, shows white count 11, hematocrit 42, and platelets 178. Sodium 138, potassium 3.9, chloride 104, bicarbonate 29, BUN 11, creatinine 0.8, calcium 8.6, and glucose 103. OBJECTIVE: VITAL SIGNS: Within normal limits. Afebrile, pulse 87, respirations 18, blood pressure 131/82, and oxygen saturation 95%. I spent over 60 minutes in consultation today. I saw the patient at the bedside with the charge nurse, RNAdalgisa. I discussed the case with the day nurse Lyudmila KEITA along with the overnight nurse RNLiat. The patient's nausea symptoms were persistent last night. The patient denies glaucoma symptoms, so the nurse applied a scopolamine patch. Since that application, the patient's nausea symptoms have resolved and he has tolerated advancing diet this morning without any difficulties. The patient is breathing, swallowing, and phonating within normal limits. After his multiple-level neck surgery, the patient has been able to ambulate in and out of bed with the assistance of his . He is voiding urine well after Abrams catheter has been removed. The patient denies any shortness of breath or chest pain. The patient has been using the Ute pills with good efficacy along with some intermittent doses of parenteral narcotics here in the hospital. Dr. Barrios was pleased with the surgical outcome and recommended the patient discharged to home to his later today. After discussion with the patient, the patient agreed. I did leave a prescription for 60 tablets of Ute 10/325. Additionally, the patient did remark about his severe gastrointestinal issues that he has had over the past four years. He does have an outpatient movable bulkhead installer, who has performed multiple upper endoscopies on the patient. The patient states that he has been using a Dexilant 60 mg daily. Chronically, although his prescription recently lapsed although the movable bulkhead installer told him to try to take a from the medication. Because the patient's symptoms have become quite severe lately, the patient did ask for a prescription and I did give him one month prescription for Dexilant and instructed the patient to follow up with his movable bulkhead installer. The patient agreed to comply. The patient has normal vital signs and is breathing comfortably on room air. I see no contraindication for discharge trial home at this time. He has a soft collar in place. He also has an [place] collar to use whenever out of bed. I instructed the patient to contact Dr. Barrios, in surgical clinic for a follow up of surgical appointment along with and further instructions for showering and outpatient physical therapy. Alejandro Mackey M.D. DR: MOHAN JOB#: [id number] CC:
--- NOTE | 2017-12-01 18:02 | Internal Med Progress Note ---
Subjective Date of Service: Dec 01, 2017 Physician Name Joe Buenrostro Attending Physician Pepe Barrios MD Allergies: Coded Allergies: No Known Allergies (Unverified , 03/25/17) ROS Limited/Unobtainable: No Constitutional: Reports: no symptoms HEENT: Reports: no symptoms Cardiovascular: Reports: no symptoms Respiratory: Reports: no symptoms Gastrointestinal/Abdominal: Reports: no symptoms Genitourinary: Reports: no symptoms Neurologic/Psychiatric: Reports: no symptoms Subjective 52 YO M admitted with cervical spine radiculopathy. Now S/P C4-5 ACDR and C5-7 ACDF with uncoverbrectomy on 11/30/17. Cover for Int [facility]-Dr Chris Objective Last Vital Signs Date Time Temp Pulse Resp B/P (MAP) Pulse Ox O2 Delivery O2 Flow Rate FiO2 12/01/17 12:00 97.9 87 19 131/82 (98) 95 97.9 12/01/17 09:00 Nasal Cannula 3.0 Laboratory Tests Test 12/01/17 05:20 White Blood Count 10.8 K/UL (4.8-10.8) Red Blood Count 4.71 M/UL (4.70-6.10) Hemoglobin 14.7 G/DL (14.2-18.0) Hematocrit 42.2 % (42.0-52.0) Mean Corpuscular Volume 90 FL (80-99) Mean Corpuscular Hemoglobin 31.3 PG (27.0-31.0) H Mean Corpuscular Hemoglobin Concent 34.9 G/DL (32.0-36.0) Red Cell Distribution Width 11.0 % (11.6-14.8) L Platelet Count 178 K/UL (150-450) Mean Platelet Volume 7.5 FL (6.5-10.1) Neutrophils (%) (Auto) 83.8 % (45.0-75.0) H Lymphocytes (%) (Auto) 8.2 % (20.0-45.0) L Monocytes (%) (Auto) 7.8 % (1.0-10.0) Eosinophils (%) (Auto) 0.0 % (0.0-3.0) Basophils (%) (Auto) 0.2 % (0.0-2.0) Sodium Level 138 MMOL/L (136-145) Potassium Level 3.9 MMOL/L (3.5-5.1) Chloride Level 104 MMOL/L (98-107) Carbon Dioxide Level 29 MMOL/L (21-32) Anion Gap 5 mmol/L (5-15) Blood Urea Nitrogen 11 mg/dL (7-18) Creatinine 0.8 MG/DL (0.55-1.30) Estimat Glomerular Filtration Rate > 60 mL/min (>60) Glucose Level 103 MG/DL (74-106) Calcium Level 8.6 MG/DL (8.5-10.1) Intake and Output 11/30/17 12/01/17 19:00 07:00 Intake Total 2215 ml 1205 ml Output Total 300 ml Balance 1915 ml 1205 ml Intake Oral 360 ml IV Total 1855 ml 1205 ml Output Urine Total 200 ml Estimated Blood Loss 100 ml Objective General Appearance: WD/WN, no apparent distress, alert EENT: PERRL/EOMI, normal ENT inspection Neck: non-tender, normal alignment, supple, normal inspection Cardiovascular: normal peripheral pulses, normal rate, regular rhythm, no gallop/murmur, no JVD Respiratory/Chest: chest wall non-tender, lungs clear, normal breath sounds, no respiratory distress, no accessory muscle use Abdomen: normal bowel sounds, non tender, soft, no organomegaly, no mass Extremities: normal range of motion, non-tender Neurologic: working supervisor II-XII grossly normal, no motor/sensory deficits Skin: normal pigmentation, warm/dry Assessment/Plan Problem List: (1) Cervical spinal stenosis Assessment & Plan: S/P C 4-5 ACDR and C 5-7 ACDF with uncoverbrectomy on . See surgery note. (2) Radiculopathy of cervical spine (3) Gastroesophageal reflux disease Assessment/Plan Discharge home today Joe Buenrostro MD Dec 01, 2017 18:02
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
== END 2017-12-01 16:14 | disposition home or self-care (01) | DRG 473 ==
LOC: SUR 06:32 → EDSTATUS 08:00 → 3E 13:51
PROC: 0RG20A0 Fusion of 2 or more Cervical Vertebral Joints with Interbody Fusion Device, Anterior Approach, Anterior Column, Open Approach (ICD-10-PCS; principal; 2017-11-30 08:00)
PROC: 0RT30ZZ Resection of Cervical Vertebral Disc, Open Approach (ICD-10-PCS; principal; 2017-11-30 08:00)
PROC: 0RR30JZ Replacement of Cervical Vertebral Disc with Synthetic Substitute, Open Approach (ICD-10-PCS; principal; 2017-11-30 08:00)
DX: M50.121 Cervical disc disorder at C4-C5 level with radiculopathy (principal); T14.90XS Injury, unspecified, sequela; V49.40XS Driver injured in collision with unspecified motor vehicles in traffic accident, sequela; K21.9 Gastro-esophageal reflux disease without esophagitis; Z87.74 Personal history of (corrected) congenital malformations of heart and circulatory system; R11.0 Nausea; M48.02 Spinal stenosis, cervical region; G89.18 Other acute postprocedural pain
CPT/HCPCS: 36415; 71046; 72040; 76001; 80048; 80053; 84100; 85025; 85610; 85730; 86850; 86900; 86901; 87081; 87086; 94003; 94150; C9399; J2250; J2405